=== PATIENT | male | born 1980 | race African-American/Black ===

== ENCOUNTER 2021-11-20 23:14 | Emergency (ER) | payer SELFPAY ==
--- NOTE | 2021-11-20 23:26 | PC.NURSE ---
Pt stated he needed to move his car and said he would be back. At this time pt has not [email or web address]
== END 2021-11-20 23:15 | disposition left against medical advice (07) ==
LOC: ANHED 23:41
PROVIDERS: PCP Internal Medicine
DX: Z53.21 Procedure and treatment not carried out due to patient leaving prior to being seen by health care provider (principal)
CPT/HCPCS: 99199